=== PATIENT | male | born 2000 | race Caucasian/White ===

== ENCOUNTER 2018-01-01 03:34 | Emergency (ER) | payer OTHER ==
[~2018-01-01] VITALS: Ht 175.3 cm; Wt 68.0 kg
[~2018-01-01 03:34] MED LIST: albuterol; tylenol
[2018-01-01 03:47] VITALS: BP_SYST 133
[2018-01-01] MEDS ORDERED: IPRATROPIUM BROM 0.5 MG/2.5 ML VIAL.NEB (ATROVENT) IH ONE (04:15)
[2018-01-01] MEDS ORDERED: ALBUTEROL SULFATE 0.083% 2.5 MG/3 ML VIAL.NEB IH ONE (04:15)
[2018-01-01] MEDS ORDERED: PREDNISONE 20 MG TABLET PO ONE (04:15)
[2018-01-01 05:04] VITALS: BP_SYST 131
== END 2018-01-01 05:04 | disposition home or self-care (01) ==
LOC: SED 03:34
DX: J45.901 Unspecified asthma with (acute) exacerbation (principal); R05 Cough
CPT/HCPCS: 94640; 99283; J7512; J7613

== ENCOUNTER 2018-09-04 19:03 | Emergency (ER) | payer OTHER ==
[~2018-09-04] VITALS: Ht 170.2 cm; Wt 68.0 kg
[2018-09-04 19:27] VITALS: BP_SYST 117
[2018-09-04] MEDS ORDERED: KETOROLAC TROMETHAMINE 60 MG/2 ML VIAL IM ONE (20:30)
[2018-09-04] MEDS ORDERED: CYCLOBENZAPRINE HCL 10 MG TABLET (FLEXERIL) PO ONE (20:30)
[2018-09-04 21:39] VITALS: BP_SYST 117
== END 2018-09-04 21:39 | disposition home or self-care (01) ==
LOC: SED 19:03
DX: S13.4XXA Sprain of ligaments of cervical spine, initial encounter (principal); J45.909 Unspecified asthma, uncomplicated; X58.XXXA Exposure to other specified factors, initial encounter; Y93.89 Activity, other specified; Y92.89 Other specified places as the place of occurrence of the external cause; Y99.8 Other external cause status
CPT/HCPCS: 72040; 96372; 99283; J1885